=== PATIENT | male | born 1990 | race Caucasian/White ===

== ENCOUNTER 2018-12-12 10:16 | Emergency (ER) | payer OTHER ==
[~2018-12-12] VITALS: Ht 182.9 cm; Wt 136.1 kg
[2018-12-12] MEDS ORDERED: KETO10 PO (11:36)
[2018-12-12] MEDS ORDERED: CYCL10 PO (11:36)
[2018-12-12] MEDS ORDERED: Voltaren100 GM TOP (11:36)
== END 2018-12-12 11:50 | disposition home or self-care (01) ==
LOC: ER 10:16
DX: M54.5 Low back pain (principal); G89.29 Other chronic pain; M41.9 Scoliosis, unspecified; F17.200 Nicotine dependence, unspecified, uncomplicated
CPT/HCPCS: 72100; 96372; 99283-25; J1885